=== PATIENT | female | born 1955 | race Caucasian/White ===

== ENCOUNTER → 2016-08-30 | Outpatient (CLI) | payer OTHER, MEDICAID ==
[~2016-08-30] MED LIST: AMIT100 PO; AMLO5TAB22 PO; AZEL137S; FLUT1SPR9; HYDR50TA94 PO; IBUP400 PO; TRAM50 PO; VENTAER INH; VIIB20TA PO; XANA1TAB6 PO
[2016-08-30 14:23] LABS: BLOOD GAS CARBOXYHEMOGLOBIN 1.3 % (0-4); BLOOD GAS HCO3 24 mmol/L (22-26); BLOOD GAS METHEMOGLOBIN 1.1 % (0-2); BLOOD GAS O2 HGB SATURATION 95 % (90-100); BLOOD GAS OXYGEN CONTENT 17.2 Vol % (12.0-20.0); BLOOD GAS PCO2 39 mmHg (38-42); BLOOD GAS PO2 90 mmHg (61-120); BLOOD GAS TOTAL HGB 12.9 G/DL (12.0-16.0); TEMP CORR TO 98.6
[2016-08-30 14:24] LABS: CRITICAL VALUE NO; DRAW SITE RT RADIAL; FIO2 21 %; STAT NO; ULNAR PULSE PRESENT
[2016-09-03 09:46] LABS: NUMBER OF ARTERIAL PUNCTURES 1
--- NOTE | 2016-09-20 10:27 | RSPPFT ---
DATE OF PROCEDURE: 08/30/16 COMMENTS: Spirometry with FVC of 3.1, FEV1 of 2.3, FEV1/FVC ratio at 73%. TLC is 95% of predicted. Diffusion capacity is normal. Room air arterial blood gases show pH of 7.41, PCO2 of 39, PO2 of 90. IMPRESSION: 1. Moderate airways obstruction. 2. Non-significant response to acutely inhaled bronchodilator. 3. Adequate oxygenation and alveolar ventilation. 4. No evidence of airways restriction. 5. Normal diffusion capacity.
== END ==
LOC: HRSP 12:57
PROVIDERS: ATTEND Internal Medicine Sleep Medicine
DX: R06.89 Other abnormalities of breathing (principal)
CPT/HCPCS: 36600; 82805; 94060; 94726; 94729

== ENCOUNTER 2017-05-07 04:37 | Emergency (ER) | payer MEDICARE, MEDICAID ==
[~2017-05-07] VITALS: Ht 172.7 cm; Wt 178.0 kg
[~2017-05-07 04:37] MED LIST changes: +ALPR1TAB3 PO; -AMIT100 PO; +AMIT150T PO; +AMLO5TAB2 PO; -AMLO5TAB22 PO; +ATOR20TA15 PO; -AZEL137S; +D 50CAP2 PO; -FLUT1SPR9; -IBUP400 PO; +IPRA0.06 EACH NARE; +IPRASOL INH; +OMEP20TA93 PO; +REBI44IN SQ; +SYMB160A INH; -TRAM50 PO; -VENTAER INH; -VIIB20TA PO; +VIIB40TA PO; -XANA1TAB6 PO
[2017-05-07 04:38] VITALS: BP 123/62; PULSE 92; RESP 18; TEMP 98.2; O2SAT 99
--- NOTE | 2017-05-07 04:57 | PD ---
HPI Chief Complaint: Fall Time Seen by Provider: 04:48 Travel History International Travel<30 days: No Contact w/Intl Traveler<30days: No Traveled to known affect area: No History of Present Illness HPI The patient is a 62 year old female who presents to the [facility] emergency department with a history of falling off of the toilet prior to arrival. The patient reports that she awoke to urinate and fell asleep on the toilet falling face forward. The patient had difficulty getting up off of the toilet due to the close spacing of toilet and the wall, therefore ambulance services were called. The patient was noted to have a nosebleed prior to arrival. The patient was noted to have swelling to the center of the forehead. The nosebleed stopped prior to arrival. The patient was noted to have an abrasion overlying the nasal bridge with swelling over the nasal bridge. The patient reports having pain in her nose. She denies having a loss of consciousness, fact she awoke when she hit her head. She denies having any new neck pain, new numbness or tingling to her extremities or new weakness to her extremities. She does have a history of multiple sclerosis. On review of systems otherwise, the patient denies having any recent known fevers, cough, congestion, neck pain, chest pain, shortness of breath, abdominal pain, vomiting , diarrhea, urinary symptoms or other new neurologic symptoms. The patient reports that her tetanus was updated in 2016. [facility] Past Medical History Narrative Medical The patient's past medical history is significant for multiple sclerosis, depression, hypertension, COPD, hyperlipidemia, degenerative disc disease of her back. Depression: Yes Cancer: No Cardiovascular Problems: No Diabetes: No Diminished Hearing: No Endocrine: No Genitourinary: No Hepatitis: No Hiatal Hernia: No Hypertension: Yes Immune Disorder: No Neurologic: Yes (DIZZINESS, VERTIGO) Psychiatric: Yes (DEPRESSION,PTSD, ANXIETY) Reproductive: No Respiratory: Yes (ASTHMA) Immunizations Current: Yes Pneumonia: Yes (states 18 times) Thyroid Disease: No ?: Not Past Surgical History Narrative Surgical The patient's past surgical history is significant for tonsillectomy, right knee arthroplasty. AICD: No Joint Replacement: No Oral Surgery: Yes (TONSILL) Pacemaker: No Other Surgery: Yes Social History Alcohol Use: No Tobacco Use: No Substance Use: No Allergies-Medications (Allergen,Severity, Reaction): Coded Allergies: teriflunomide (Verified Allergy, Severe, Hives, 04/20/17) cephalexin (Unverified Allergy, Intermediate, Rash, 04/08/17) Reported Meds & Prescriptions Reported Meds & Active Scripts Active Omeprazole 20 Mg Tab 20 Mg PO DAILY Ipratropium Nasal 0.06% [place] 1 [place] EACH NARE TID D3 Maximum Strength (Cholecalciferol) 5,000 Unit Cap 5,000 Units PO DAILY Amlodipine (Amlodipine Besylate) 5 Mg Tab 5 Mg PO DAILY Atorvastatin (Atorvastatin Calcium) 20 Mg Tab 20 Mg PO HS Duoneb (Ipratropium-Albuterol Neb) 0.5-2.5 Mg/3 Ml Neb 1 Nebule INH Q8HR NEB Symbicort Inh (Budesonide/Formoterol Fumarate) 160-4.5 Mcg/Act Aero 1 Puff INH Q12HR Reported Rebif Inj (Interferon Beta 1a) 44 Mcg/0.5 Ml Syr 44 Mcg SQ Hydroxyzine HCl 50 Mg Tab 50 Mg PO HS Amitriptyline (Amitriptyline HCl) 150 Mg Tab 150 Mg PO HS Alprazolam 1 Mg Tab 1 Mg PO Q8H PRN Viibryd (Vilazodone) 40 Mg Tab 40 Mg PO DAILY Review of Systems Except as stated in HPI: all other systems reviewed are Neg General / Constitutional: No: Fever Eyes: No: Visual changes HENT: Positive: Nosebleed, No: Headaches, Neck Stiffness, Neck Pain Cardiovascular: No: Chest Pain or Discomfort Respiratory: No: Shortness of Breath Gastrointestinal: No: Abdominal Pain Genitourinary: No: Dysuria Musculoskeletal: No: Pain Skin: No Rash Neurologic: Positive: Headache, No: Weakness, Focal Abnormalities, Change in Mentation, Slurred Speech, Sensory Disturbance Psychiatric: No: Depression Endocrine: No: Polydipsia Hematologic/Lymphatic: No: Easy Bruising Physical Exam Narrative General: The patient is a well-developed well-nourished female in no acute distress. Head and Neck exam: Head is normocephalic, evidence of trauma to the center of the forehead with a hematoma that is developing overlying the forehead. Eyes: EOMI, pupils are equal round and reactive to light. Nose: Midline septum with dried blood present in the right naris, no active bleeding. No septal hematoma. The patient has tenderness on palpation overlying the nasal bridge with a nasal contusion noted. The patient has an abrasion overlying the nasal bridge. No active bleeding. Mouth: Moist mucus membranes. Posterior oropharynx is not erythematous. No tonsillar hypertrophy. Uvula midline. Airway patent. Neck: No palpable lymphadenopathy. No nuchal rigidity. No thyromegaly. No spinous process tenderness to palpation. No step-off or crepitus. No erythema or ecchymosis. Cardiovascular: Regular rate and rhythm without murmurs, gallops, or rubs. Lungs: Clear to auscultation bilaterally. No wheezes, rhonchi, or rales. Abdomen: Soft, without tenderness to palpation in all 4 quadrants of the abdomen. No guarding, rebound, or rigidity. Normal bowel sounds are audible. No tenderness on palpation of McBurney's point. Extremities: No clubbing, cyanosis, or edema. 2+ pulses in all 4 extremities. No calf tenderness on palpation. No extremity tenderness on palpation. Back: No spinous process tenderness to palpation. No costovertebral angle tenderness to palpation. Neurologic Exam: Grossly nonfocal. Skin Exam: Skin is warm and dry. Data Data Last Documented VS Vital Signs Date Time Temp Pulse Resp B/P (MAP) Pulse Ox O2 Delivery O2 Flow Rate FiO2 05/07/17 04:38 98.2 92 18 123/62 (82) [address] Brain W/O Iv Contrast(Rout) (05/07/17 04:48) Ct Cerv Spine W/O Contrast (05/07/17 04:48) Ct Facial Bones W/O Iv Cont (05/07/17 04:48) Ed Discharge Order (05/07/17 06:03) Foot, Complete (Mhx3bio) (05/07/17 06:10) Splint Or Brace Apply/Monitor (05/07/17 06:54) MDM Medical Decision Making Medical Screen Exam Complete: Yes Emergency Medical Condition: Yes Medical Record Reviewed: Yes Interpretation(s) Last Impressions Foot X-Ray 05/07/17609 Signed Impressions: Service Date/Time: Sunday, May 07, 2017 06:20 - CONCLUSION: 1. Fracture fifth metatarsal Shan Morel MD Maxillofacial CT 05/07/17 5217 Signed Impressions: Service Date/Time: Sunday, May 07, 2017 05:00 - CONCLUSION: 1. There is no evidence of acute fracture. Shan Morel MD Head CT 05/07/178 Signed Impressions: Service Date/Time: Sunday, May 07, 2017 05:00 - CONCLUSION: 1. No evidence of acute intracranial pathology. No masses are identified. Shan Morel MD Cervical Spine CT 05/07/178 Signed Impressions: Service Date/Time: Sunday, May 07, 2017 05:00 - CONCLUSION: 1. Moderate degenerative changes as described above. There is no evidence of acute fracture. Shan Morel MD Differential Diagnosis Intracranial hemorrhage, versus cervical spine injury, versus nasal bone fracture Narrative Course During the course of the patients emergency department visit, the patients history, examination, and differential diagnosis were reviewed with the patient. The patient was placed on a monitoring manager with oximetry and frequent blood pressure monitoring. The patient had a CT scan of the head, neck, facial bones ordered. The patient was initially provided an ice pack to the forehead. Radiology studies were reviewed and remarkable for CT scan of the brain showed no acute abnormality. CT scan of the facial bones showed no evidence of acute bony injury, however soft tissue swelling over the frontal skull. CT scan of the C-spine shows moderate degenerative changes, no acute fracture. As I was discussing the patient's CT scan findings with her she reported that since being in the emergency department that she noticed that she has some left foot pain. The patient on examination is noted to have tenderness on palpation along the fourth and fifth metatarsal. There is no notable deformity. The patient does have some arthritic changes in the toes of her feet. She reports that the appearance of her toes is similar to previously. An x-ray of the left foot was ordered. The patient was noted on left foot x-ray to have an oblique fracture of the fifth metatarsal. The patient will be placed in a walking boot. The patient will be given information regarding following up with the steam heating installer regarding her injury. The patient is given the name of the steam heating installer on-call, Dr. Jung for follow -up. The patient is resting comfortably and feels better, is alert and in no distress. The patients results and examination findings were discussed with the patient. The repeat examination is unremarkable and benign. The history, exam, diagnostic testing, and current condition do not suggest any significant pathology to warrant further testing, continued ED treatment, admission, or surgical evaluation at this point. The vital signs have been stable. The patient does not have uncontrollable pain, intractable vomiting, or other significant symptoms. The patient's condition is stable and appropriate for discharge. The patient will pursue further outpatient evaluation with a primary care physician or other designated or consulting physician as indicated in the discharge instructions. The patient expressed understanding and was agreeable with this plan. Diagnosis Primary Impression: Head injury Qualified Codes: S09.90XA - Unspecified injury of head, initial encounter Additional Impression: Nondisplaced fracture of fifth left metatarsal bone Qualified Codes: S92.355A - Nondisplaced fracture of fifth metatarsal bone, left foot, initial encounter for closed fracture Referrals: Lazaro Bell MD 1 week Gavin Richardson DPM call for appointment Patient Instructions: Foot Fracture in Adults (ED), General Instructions, Head Injury (ED) Med/Other Pt SpecificInfo: Prescription(s) given Disposition: 01 DISCHARGE HOME Condition: Stable Kelley Guan MD May 07, 2017 04:57
--- NOTE | 2017-05-07 05:35 | RADRPT ---
EXAM DATE/TIME: 05/07/2017 05:00 [facility] COMPARISON: No previous studies available for comparison. INDICATIONS : Trauma, fall. Laceration and hematoma to medial forehead. RADIATION DOSE: 45.74 CTDIvol (mGy) MEDICAL HISTORY : Hypertension. SURGICAL HISTORY : None. ENCOUNTER: Initial ACUITY: 1 day PAIN SCALE: 4/10 LOCATION: cranial TECHNIQUE: Multiple contiguous axial images were obtained of the head. Using automated exposure control and adj ustment of the mA and/or kV according to patient size, radiation dose was kept as low as reasonably a chievable to obtain optimal diagnostic quality images. DICOM format image data is available electro nically for review and comparison. FINDINGS: CEREBRUM: The ventricles are normal for age. No evidence of midline shift, mass lesion, hemorrhage or acute in farction. No extra-axial fluid collections are seen. POSTERIOR FOSSA: The cerebellum and brainstem are intact. The 4th ventricle is midline. The cerebellopontine angle i s unremarkable. EXTRACRANIAL: The visualized portion of the orbits is intact. SKULL: The calvaria is intact. No evidence of skull fracture. CONCLUSION: 1. No evidence of acute intracranial pathology. No masses are identified. Shan Morel MD on May 07, 2017 at 5:32 Board Certified Radiologist. This report was verified electronically.
--- NOTE | 2017-05-07 05:37 | RADRPT ---
EXAM DATE/TIME: 05/07/2017 05:00 [facility] COMPARISON: No previous studies available for comparison. INDICATIONS : Trauma, fall. Laceration and hematoma to medial forehead. RADIATION DOSE: 45.11 CTDIvol (mGy) MEDICAL HISTORY : Hypertension. SURGICAL HISTORY : None. ENCOUNTER: Initial ACUITY: 1 day PAIN SCORE: 4/10 LOCATION: facial TECHNIQUE: Volumetric scanning of the facial bones was performed. Using automated exposure control and adjustme nt of the mA and/or kV according to patient size, radiation dose was kept as low as reasonably achiev able to obtain optimal diagnostic quality images. DICOM format image data is available electronicSnowShoe Stamp y for review and comparison. FINDINGS: CT scan of the facial bones was performed in the axial plane with coronal reconstructions. Soft tissu e windows demonstrate soft tissue hematoma in the midline over the right frontal bone. The paranasal sinuses demonstrate mucosal disease in the right sphenoidal air cell. No fracture is i dentified. The zygomatic arches are intact. The nasal bones are unremarkable. Coronal reconstructions demonstrate the orbital floors and rims to be intact. The nasal septum is in the midline. The pterygoid plates are also intact. The body of the mandible, mandibular neck and desi ibular heads are also unremarkable. CONCLUSION: 1. There is no evidence of acute fracture. Shan Morel MD on May 07, 2017 at 5:33 Board Certified Radiologist. This report was verified electronically.
--- NOTE | 2017-05-07 05:41 | RADRPT ---
EXAM DATE/TIME: 05/07/2017 05:00 [facility] COMPARISON: No previous studies available for comparison. INDICATIONS : Trauma, fall. Laceration and hematoma to medial forehead. RADIATION DOSE: 36.90 CTDIvol (mGy) ; Patient body habitus MEDICAL HISTORY : Hypertension. SURGICAL HISTORY : None. ENCOUNTER: Initial ACUITY: 1 day PAIN SCALE: 4/10 LOCATION: neck TECHNIQUE: Volumetric scanning of the cervical spine was performed. Multiplanar reconstructions in the sagittal, coronal and oblique axial planes were performed. Using automated exposure control and adjustment o f the mA and/or kV according to patient size, radiation dose was kept as low as reasonably achievable to obtain optimal diagnostic quality images. DICOM format image data is available electronically f or review and comparison. FINDINGS: Sagittal images demonstrate normal vertebral body alignment and curvature. The odontoid is intact. Th e occipital condyles and lateral masses of C1 are intact. Axial images were performed from C2-C3 to C7-T1. There is multilevel disc space narrowing and marginal osteophyte formation maximal at C6-C7. C2-C3: There is mild diffuse annular bulge of the disc. The neural foramina are clear bilaterally. There is no significant spinal canal stenosis. C3-C4: There is osteophytic ridging along the posterior aspect of vertebral body. There is mild spinal canal stenosis. C4-C5: No significant abnormalities identified. C5-C6: There is osteophytic ridging along the posterior aspect of vertebral body. There is mild right sided neural foraminal narrowing. There is mild facet arthritis bilaterally. C6-C7: There is osteophytic ridging along the posterior aspect of vertebral body. There is mild facet arthri tis bilaterally. C7-T1: There is mild diffuse annular bulge of the disc. The neural foramina are clear bilaterally. There is no significant spinal canal stenosis. CONCLUSION: 1. Moderate degenerative changes as described above. There is no evidence of acute fracture. Shan Morel MD on May 07, 2017 at 5:36 Board Certified Radiologist. This report was verified electronically.
--- NOTE | 2017-05-07 06:47 | RADRPT ---
EXAM DATE/TIME: 05/07/2017 06:20 [facility] COMPARISON: No previous studies available for comparison. INDICATIONS : Pain in left foot 3rd through 5th digits from fall. MEDICAL HISTORY : None. SURGICAL HISTORY : None. ENCOUNTER: Initial ACUITY: 1 day PAIN SCORE: 5/10 LOCATION: Left foot FINDINGS: There is an oblique fracture of the shaft of the fifth metatarsal. No intra-articular extension is pr esent. Bony mineralization is normal. CONCLUSION: 1. Fracture fifth metatarsal Shan Morel MD on May 07, 2017 at 6:45 Board Certified Radiologist. This report was verified electronically.
[2017-05-08] MEDS ORDERED: CLOTR1%T TOPICAL (15:58)
[2017-05-08] MEDS ORDERED: VENTAER INH (15:58)
== END 2017-05-07 10:07 | disposition home or self-care (01) ==
LOC: NEPC 04:37
DX: S09.90XA Unspecified injury of head, initial encounter (principal); S92.355A Nondisplaced fracture of fifth metatarsal bone, left foot, initial encounter for closed fracture; S00.83XA Contusion of other part of head, initial encounter; G35 Multiple sclerosis; J44.9 Chronic obstructive pulmonary disease, unspecified; I10 Essential (primary) hypertension; E78.5 Hyperlipidemia, unspecified; F41.9 Anxiety disorder, unspecified; W18.11XA Fall from or off toilet without subsequent striking against object, initial encounter
CPT/HCPCS: 70450; 70486; 72125; 73630; 99285; L2114

== ENCOUNTER 2017-05-08 16:50 | Emergency (ER) | payer MEDICARE, MEDICAID ==
[~2017-05-08] VITALS: Ht 170.2 cm; Wt 180.0 kg
[~2017-05-08 16:50] MED LIST changes: +CLOTR1%T TOPICAL; +VENTAER INH
[2017-05-08 16:51] VITALS: BP 136/74; PULSE 102; RESP 18; TEMP 99; O2SAT 95
--- NOTE | 2017-05-08 18:08 | PD ---
HPI Chief Complaint: Head Injury Time Seen by Provider: 18:05 Travel History International Travel<30 days: No Contact w/Intl Traveler<30days: No Traveled to known affect area: No History of Present Illness HPI This is a 66-year-old female who presents for reevaluation after a facial injury. The patient was seen here on May 07 after falling off of a toilet and hitting her face. She underwent CT imaging of the brain, facial bones and cervical spine as well as an x-ray of the left foot. Imaging revealed only a fracture of the left fifth metatarsal and she has followed up with a retail parts professional. She has developed worsening bilateral periorbital ecchymosis and this concerned her and this is what prompted evaluation. She endorses some pain primarily to the bridge of the nose which is mild and worse with palpation. She has no abrasion to the bridge of the nose as well. She denies any blurred vision, focal weakness, slurred speech, acute headache. She is not on any blood thinning medications. She has no other complaints at this time. History Past Medical Histgory Hx Cancer: No Social History Alcohol Use: No Tobacco Use: No Allergies-Medications (Allergen,Severity, Reaction): Coded Allergies: teriflunomide (Verified Allergy, Severe, Hives, 05/08/17) cephalexin (Unverified Allergy, Intermediate, Rash, 05/08/17) Reported Meds & Prescriptions Reported Meds & Active Scripts Active Omeprazole 20 Mg Tab 20 Mg PO DAILY Ipratropium Nasal 0.06% [place] 1 [place] EACH NARE TID D3 Maximum Strength (Cholecalciferol) 5,000 Unit Cap 5,000 Units PO DAILY Amlodipine (Amlodipine Besylate) 5 Mg Tab 5 Mg PO DAILY Atorvastatin (Atorvastatin Calcium) 20 Mg Tab 20 Mg PO HS Duoneb (Ipratropium-Albuterol Neb) 0.5-2.5 Mg/3 Ml Neb 1 Nebule INH Q8HR NEB Symbicort Inh (Budesonide/Formoterol Fumarate) 160-4.5 Mcg/Act Aero 1 Puff INH Q12HR Reported Clotrimazole Topical (Clotrimazole) 1% Soln 1 Applic TOPICAL BID Ventolin Hfa 18 GM Inh (Albuterol Sulfate) 90 Mcg/Act Aer 2 Puff INH Q4-6H PRN Rebif Inj (Interferon Beta 1a) 44 Mcg/0.5 Ml Syr 44 Mcg SQ Hydroxyzine HCl 50 Mg Tab 50 Mg PO HS Amitriptyline (Amitriptyline HCl) 150 Mg Tab 150 Mg PO HS Alprazolam 1 Mg Tab 1 Mg PO Q8H PRN Viibryd (Vilazodone) 40 Mg Tab 40 Mg PO DAILY Review of Systems Except as stated in HPI: all other systems reviewed are Neg Physical Exam Narrative GENERAL: Well-developed well-nourished female in no acute distress SKIN: Warm and dry. Bilateral periorbital ecchymosis is noted. There is a small abrasion to the bridge of the nose. HEAD: Atraumatic. Normocephalic. EYES: Pupils equal and round reactive to light extraocular muscles are intact. No scleral icterus. No injection or drainage. ENT: No nasal bleeding or discharge. Mucous membranes pink and moist. There is slight tenderness to palpation of the bridge of the nose. There is no tenderness to palpation of the remaining facial bones. NECK: Trachea midline. No JVD. CARDIOVASCULAR: Regular rate and rhythm. No murmur appreciated. RESPIRATORY: No accessory muscle use. Clear to auscultation. Breath sounds equal bilaterally. GASTROINTESTINAL: Left foot is in a boot. NEUROLOGICAL: Awake and alert. No obvious cranial nerve deficits. Motor grossly within normal limits. Normal speech. Data Data Last Documented VS Vital Signs Date Time Temp Pulse Resp B/P (MAP) Pulse Ox O2 Delivery O2 Flow Rate FiO2 05/08/17 16:51 99.0 102 18 136/74 (94) 95 Room Air [facility] Medical Screen Exam Complete: Yes Emergency Medical Condition: No Narrative Course The patient's imaging studies from May 07 were reviewed. Her periorbital ecchymosis is to be expected. She has no focal neurologic deficits. No indication for repeat neuro imaging. A medical screening exam was performed: At the time of evaluation the presenting medical condition was determined not to be of an emergent nature. The patient was given the option of receiving additional care, but declined. Patient was given options for additional community resources from which to obtain care. The Patient Has Been advised to seek medical attention for their presenting complaint. The patient has been advised to return to the ER at any time if an emergent condition develops. Primary Impression: Encounter for medical screening examination Tian Wu May 08, 2017 18:08
== END 2017-05-08 18:15 | disposition left against medical advice (07) ==
LOC: NEPK 16:50
DX: S00.12XD Contusion of left eyelid and periocular area, subsequent encounter (principal); S00.11XD Contusion of right eyelid and periocular area, subsequent encounter; S00.31XD Abrasion of nose, subsequent encounter; W18.11XD Fall from or off toilet without subsequent striking against object, subsequent encounter
CPT/HCPCS: 99281